=== PATIENT | female | born 1990 | race Caucasian/White ===

== ENCOUNTER 2019-10-11 23:42 | Emergency (ER) | payer OTHER ==
--- NOTE | 2019-10-12 00:07 | EDM.PDOC ---
ED HPI GENERAL MEDICAL PROBLEM - General Chief Complaint: General Stated Complaint: DISLOCATED SHOULDER Time Seen by Provider: 10/11/19 23:45 Source of Information: Reports: Patient History Limitations: Reports: No Limitations - History of Present Illness INITIAL COMMENTS - FREE TEXT/NARRATIVE: 29 YO WAYNE presents to ER complaining of right shoulder pain/dislocation which occurred tonight while sitting on the couch. Pt reports she has had recurrent dislocations of this shoulder in the past. Pt states she moved wrong and she felt her shoulder "dislocate". Pt denies any other injuries. Onset: Today Duration: Hour(s): (1) Location: Reports: Upper Extremity, Right Quality: Reports: Ache Severity: Severe Improves with: Reports: Rest Worsens with: Reports: Movement Context: Reports: Activity Associated Symptoms: Reports: No Other Symptoms. Denies: Chest Pain, Shortness of Breath - Related Data Allergies Allergy/AdvReac Type Severity Reaction Status Date / Time Sulfa (Sulfonamide Allergy Intermediate Rash Verified 10/11/19 23:51 Antibiotics) Penicillins Allergy Rash Verified 10/11/19 23:51 ED ROS GENERAL - Review of Systems Review Of Systems: See Below Constitutional: Reports: No Symptoms HEENT: Reports: No Symptoms Respiratory: Reports: No Symptoms Cardiovascular: Reports: No Symptoms Endocrine: Reports: No Symptoms GI/Abdominal: Reports: No Symptoms : Reports: No Symptoms Musculoskeletal: Reports: Shoulder Pain (right) Skin: Reports: No Symptoms Neurological: Reports: No Symptoms Psychiatric: Reports: No Symptoms Hematologic/Lymphatic: Reports: No Symptoms Immunologic: Reports: No Symptoms ED EXAM, GENERAL - Physical Exam Exam: See Below Exam Limited By: No Limitations General Appearance: Alert, WD/WN, No Apparent Distress Throat/Mouth: Normal Inspection, Normal Lips, Normal Teeth, Normal Gums, Normal Oropharynx, Normal Voice, No Airway Compromise Head: Atraumatic, Normocephalic Neck: Normal Inspection, Supple, Non-Tender, Full Range of Motion Respiratory/Chest: No Respiratory Distress, Lungs Clear, Normal Breath Sounds, No Accessory Muscle Use, Chest Non-Tender Cardiovascular: Normal Peripheral Pulses, Regular Rate, Rhythm, No Edema, No Gallop, No JVD, No Murmur, No Rub GI/Abdominal: Normal Bowel Sounds, Soft, Non-Tender, No Organomegaly, No Distention, No Abnormal Bruit, No Mass Extremities: No Pedal Edema, Normal Capillary Refill, Arm Pain (right shoulder with deformity consistant with an anterior dislocation) Neurological: Alert, Oriented, CN II-XII Intact, Normal Cognition, Normal Gait, Normal Reflexes, No Motor/Sensory Deficits Psychiatric: Normal Affect, Normal Mood Skin Exam: Warm, Dry, Intact, Normal Color, No Rash Lymphatic: No Adenopathy ED GENERAL MEDICAL PROCEDURES - Joint Reduction Site: Shoulder (R) Sedation: Conscious Sedation Pre-procedure NV status: Normal Post-procedure NV status: Normal Technique: Traction/Counter Traction Number of Attempts: 1 Post-Reduction Imaging: Completely Reduced - Splinting Right Upper Extremity Pre-procedure NV status: Normal Post-procedure NV status: Normal Splint Material: Sling Provider Post-Splint Application NV Check: NV Status Normal, Good Position Complications: No Course - Vital Signs Last Recorded V/S: Last Vital Signs Temp 36.6 C 10/11/19 23:54 Pulse 94 10/11/19 23:54 Resp 20 10/11/19 23:54 BP 132/77 10/11/19 23:54 Pulse Ox 98 10/11/19 23:54 - Orders/Labs/Meds Orders: Active Orders 24 hr Category Date Time Status Peripheral IV Care [RC] . DIRECTED Care 10/12/19 00:16 Active Shoulder 1V Rt [CR] Stat Exams 10/12/19 00:38 Ordered Shoulder Comp Rt [CR] Stat Exams 10/11/19 23:59 Ordered Sodium Chloride 0.9% [Normal Saline] 1,000 ml Med 10/12/19 00:16 Active IV .BOLUS Sodium Chloride 0.9% [Saline Flush] Med 10/12/19 00:16 Active 10 ml FLUSH Q8HR PRN Peripheral IV Insertion Adult [OM.PC] Routine Oth 10/12/19 00:16 Ordered Medication Orders Sodium Chloride (Normal Saline) 1,000 mls @ 999 mls/hr IV .BOLUS ONE Stop: 10/12/19 01:16 Last Admin: 10/12/19 00:53 Dose: 999 mls/hr Sodium Chloride (Saline Flush) 10 ml FLUSH Q8HR PRN PRN Reason: keep vein open Meds: Medications Generic Name Dose Route Start Last Admin Trade Name Freq PRN Reason Stop Dose Admin Sodium Chloride 1,000 mls @ 999 mls/hr 10/12/19 00:16 10/12/19 00:53 Normal Saline IV 10/12/19 01:16 999 mls/hr .BOLUS ONE Administration Sodium Chloride 10 ml 10/12/19 00:16 Saline Flush FLUSH Q8HR PRN keep vein open Discontinued Medications Generic Name Dose Route Start Last Admin Trade Name Gilda PRN Reason Stop Dose Admin Etomidate 25 mg 10/12/19 00:15 Amidate IVPUSH 10/12/19 00:16 ONETIME ONE Etomidate Confirm 10/12/19 00:27 10/12/19 00:54 Amidate Administered 10/12/19 00:28 20 mg Dose Administration 20 mg .ROUTE .STK-MED ONE Sodium Chloride Confirm 10/12/19 00:16 Normal Saline Administered 10/12/19 00:17 Dose 1,000 mls @ as directed .ROUTE .STK-MED ONE Ketorolac Tromethamine 30 mg 10/12/19 01:04 Toradol IVPUSH 10/12/19 01:05 ONETIME ONE - Radiology Interpretation Free Text/Narrative:: right shoulder - anterior dislocation post reduction- dislocation reduced Departure - Departure Time of Disposition: 00:41 Disposition: Home, Self-Care 01 Condition: Good Clinical Impression: Shoulder dislocation, recurrent Qualifiers: Laterality: right Qualified Code(s): M24.411 - Recurrent dislocation, right shoulder - Discharge Information Instructions: Shoulder Dislocation, Recurrent Shoulder Laxity and Instability Referrals: Gordon Bagley MD [Physician] - Forms: ED Department Discharge Additional Instructions: 1. discharge home 2. sling to right shoulder 3. follow up with ortho for further evaluation and treatment 4. return to ER for worsening symptoms 5. rest/ice/motrin as needed Sepsis Event Note - Evaluation Sepsis Screening Result: No Definite Risk - Focused Exam Vital Signs: Vital Signs Temp Pulse Resp BP Pulse Ox 10/11/19 23:54 36.6 C 94 20 132/77 98 Date Exam was Performed: 10/12/19 Time Exam was Performed: 01:05 - My Orders Last 24 Hours: My Active Orders 10/11/19 23:59 Shoulder Comp Rt [CR] Stat 10/12/19 00:16 Peripheral IV Care [RC] . DIRECTED Sodium Chloride 0.9% [Normal Saline] 1,000 ml IV .BOLUS Sodium Chloride 0.9% [Saline Flush] 10 ml FLUSH Q8HR PRN Peripheral IV Insertion Adult [OM.PC] Routine 10/12/19 00:38 Shoulder 1V Rt [CR] Stat - Assessment/Plan Last 24 Hours: My Active Orders 10/11/19 23:59 Shoulder Comp Rt [CR] Stat 10/12/19 00:16 Peripheral IV Care [RC] . DIRECTED Sodium Chloride 0.9% [Normal Saline] 1,000 ml IV .BOLUS Sodium Chloride 0.9% [Saline Flush] 10 ml FLUSH Q8HR PRN Peripheral IV Insertion Adult [OM.PC] Routine 10/12/19 00:38 Shoulder 1V Rt [CR] Stat Assessment:: 1. right shoulder anterior dislocation Plan: 1. discharge home 2. sling to right shoulder 3. follow up with ortho for further evaluation and treatment 4. return to ER for worsening symptoms 5. rest/ice/motrin as needed
[2019-10-12] MEDS ORDERED: Etomidate 2 MG/ML 20 ML SDV IVPUSH ONE (00:15)
[2019-10-12] MEDS ORDERED: Sodium Chloride 0.9% 1,000 ML IV ONE (00:16)
[2019-10-12] MEDS ORDERED: Sodium Chloride 0.9% 1,000 ML ONE (00:16)
[2019-10-12] MEDS ORDERED: Sodium Chloride 0.9% 10 ML Syringe FLUSH PRN (00:16)
[2019-10-12] MEDS ORDERED: Etomidate 2 MG/ML 10 ML SDV ONE (00:27)
[2019-10-12] MEDS ORDERED: Ketorolac 30 MG/ML SDV IVPUSH ONE (01:04)
--- NOTE | 2019-10-12 08:57 | CR ---
[id number] RAD/RAD Shoulder Right 1V EXAM: RAD Shoulder Right 1V CLINICAL DATA: REDUCTION OF DISLOCATED SHOULDER COMPARISON: CORRELATION IS MADE WITH THE EARLIER EXAM FINDINGS: No fracture or dislocation is seen. There is no radiopaque foreign body in the soft tissues. There is no air in the soft tissues. There is no cortical thickening or periosteal reaction either. IMPRESSION: SUCCESSFUL REDUCTION Keegan Elizalde MD 10/12/19 [id number] Thank you for allowing us to participate in the care of your patient.
--- NOTE | 2019-10-12 08:59 | CR ---
[id number] RAD/RAD Shoulder Right 2V Min EXAM: RAD Shoulder Right 2V Min CLINICAL DATA: TRAUMA COMPARISON: NO PREVIOUS SIMILAR EXAM IS AVAILABLE. FINDINGS: Anterior inferior dislocation of the right shoulder is seen. IMPRESSION: SHOULDER DISLOCATION DESCRIBED Keegan Elizalde MD 10/12/19 0858 Thank you for allowing us to participate in the care of your patient.
== END 2019-10-12 01:30 | disposition home or self-care (01) ==
LOC: KA.ED 23:42
DX: M24.411 Recurrent dislocation, right shoulder (principal); Z88.2 Allergy status to sulfonamides; Z88.0 Allergy status to penicillin
CPT/HCPCS: 23655; 73020; 73030; 96361; 96374; 99283; J1885; J3490; J7030